=== PATIENT | female | born 1990 | race Two or more races ===

== ENCOUNTER 2024-12-11 09:35 | Outpatient (RCR) | payer MEDICAID, SELFPAY ==
--- NOTE | 2024-12-11 09:58 | PTNOTE_ITS ---
PT OP Initial Eval Patient Information Outpatient Physical Therapy Treatment Date: 12/11/24 Visit Reasons: post op rt hand surgery Medical Diagnosis: M25.531 D16.11 Start of Care: 12/11/24 Date of Onset: 11/09/24 Smoking Status Smoking Status: Never smoker Initial Assessment Subjective: Pt is 34 yr old female s/p cyst removal of dorsal wrist reports low pain level. The wrist gets sore when she carries objects or her dtr who weighs 25-28 lbs. 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 Pt doesn't need skilled therapy since impairments are not severe and she wants to do HEP at home instead of coming to therapy. She was taught HEP and given printout. 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
== END 2024-12-28 23:59 | disposition home or self-care (01) ==
LOC: CPTX 09:35
PROVIDERS: PCP Surgery Surgery of the Hand; Referring Provider Surgery Surgery of the Hand; Visit Provider Surgery Surgery of the Hand
DX: M25.531 Pain in right wrist (principal); D16.11 Benign neoplasm of short bones of right upper limb; Z98.890 Other specified postprocedural states; I10 Essential (primary) hypertension
CPT/HCPCS: 97162